=== PATIENT | male | born 1960 | race Caucasian/White ===

== ENCOUNTER → 2017-01-21 | Outpatient (CLI) | payer BC | LOC: GMAB 10:28 | PROVIDERS: ATTEND Family Medicine | DX: E03.9 Hypothyroidism, unspecified (principal) ==

== ENCOUNTER → 2018-03-17 | Outpatient (CLI) | payer BC | LOC: GMAB 11:25 | PROVIDERS: ATTEND Family Medicine | DX: E03.9 Hypothyroidism, unspecified (principal); D72.819 Decreased white blood cell count, unspecified; E78.5 Hyperlipidemia, unspecified; Z12.5 Encounter for screening for malignant neoplasm of prostate ==

== ENCOUNTER → 2019-04-19 | Outpatient (CLI) | payer BC | LOC: GMAE 10:27 | PROVIDERS: ATTEND Family Medicine | DX: Z00.01 Encounter for general adult medical examination with abnormal findings (principal) ==

== ENCOUNTER → 2019-05-08 | Outpatient (CLI) | payer BC | LOC: GMAE 15:21 | PROVIDERS: ATTEND Family Medicine | DX: R10.84 Generalized abdominal pain (principal) ==

== ENCOUNTER → 2019-05-09 | Outpatient (CLI) | payer BC ==
--- NOTE | 2019-05-10 11:19 | US ---
EXAM DESCRIPTION: Aorta: Ultrasound. CLINICAL HISTORY: ABNORMAL FINDINGS ON DIAGNOSTIC IMAGING OF OTHER SPEC BODY STRUCT COMPARISON: CT scan of the abdomen in 2008. TECHNIQUE: Transcutaneous scanning: Two-dimensional and Doppler modes. FINDINGS: Abdominal aorta diameter - Proximal: 2.3 x 2.2 cm. Mid: 1.8 x 1.6 cm. Distal: 1.7 x 1.6 cm. Common Iliac diameter - Right: Unremarkable mm. Left: Unremarkable mm. Other: Atherosclerotic calcifications of the aortic huff. Proximal left renal artery almost 9 mm diameter.. IMPRESSION: 1. Aorta with minimal atherosclerotic changes but no aneurysm or stenosis. Bilateral proximal common iliac arteries unremarkable. 2. Dilation versus aneurysm proximal left renal artery. Consider right renal arterial Doppler evaluation. Electronically signed by: Sascha Grimaldo MD 05/10/2019 11:17 AM CDT
== END ==
LOC: US 08:08
PROVIDERS: ATTEND Family Medicine
DX: R93.89 Abnormal findings on diagnostic imaging of other specified body structures (principal); I70.0 Atherosclerosis of aorta; I77.89 Other specified disorders of arteries and arterioles

== ENCOUNTER → 2020-05-31 | Outpatient (CLI) | payer BC | LOC: GMAE 10:34 | PROVIDERS: ATTEND Family Medicine | DX: Z00.00 Encounter for general adult medical examination without abnormal findings (principal) ==